=== PATIENT | male | born 1955 | race Two or more races ===

== ENCOUNTER 2019-06-22 05:46 | Day surgery (SDC) | payer MEDICARE ==
--- NOTE | 2019-06-20 10:53 | Pre-Procedure Note/Attestation ---
Pre-Procedure Note/Attestation Complete Prior to Procedure Planned Procedure: right Procedure Narrative: Cataract Extraction With IOL Implant Right Eye Indications for Procedure Pre-Operative Diagnosis: Nuclear sclerotic cataract right eye Attestation I attest that I discussed the nature of the procedure; its benefits; risks and complications; and alternatives (and the risks and benefits of such alternatives ), prior to the procedure, with the patient (or the patient's legal product representative). I attest that, if there was a reasonable possibility of needing a blood transfusion, the patient (or the patient's legal product representative) was given the [facility] standardized written summary, pursuant to the [place] Blood Safety Act ([place] Health and Safety Code # 1645, as amended). I attest that I re-evaluated the patient just prior to the surgery and that there has been no change in the patient's H&P, except as documented below: Elias Bailey MD June 20, 2019 10:53
--- NOTE | 2019-06-20 10:56 | Opthalmology H&P ---
Ophthalmology H&P H&P Chief Complaint: decreased vision in right eye HPI Vision Affects Ability to: read, manage personal affairs HPI Narrative Blurry vision Exam Visual Acuity: OD 20/50 OS 20/25 Tension: OD 14 OS 13 Eye Exam: normal OU: external exam, palpebral fissure-width, marginal reflex distance, levator function, corneas, anterior chambers, fundus exam; findings: lens - NS Cataracts OU Assessment/Plan Treatment Plan: cataract extraction w/ lens implant Goals of Treatment: improvement of vision, enhance quality of life Attestation Attestation The risks and benefits of the surgery as well as alternative procedures were explained to the patient in detail. Elias Bailey MD June 20, 2019 10:56
[2019-06-20 12:18] LABS: ANION GAP 10 mmol/L (5-15); BLOOD UREA NITROGEN 11 mg/dL (7-18); CALCIUM 8.6 MG/DL (8.5-10.1); CARBON DIOXIDE 27 MMOL/L (21-32); CHLORIDE 103 MMOL/L (98-107); POTASSIUM 4.3 MMOL/L (3.5-5.1); SODIUM 140 MMOL/L (136-145)
[2019-06-20 12:47] LABS: BASOPHILS % (AUTO) 1.7 % (0.0-2.0); EOSINOPHILS % (AUTO) 4.2 % (0.0-3.0); HEMATOCRIT 42.2 % (42.0-52.0); HEMOGLOBIN 15.4 G/DL (14.2-18.0); LYMPHOCYTES % (AUTO) 44.5 % (20.0-45.0); MEAN CORPUSCULAR VOLUME 89 FL (80-99); MONOCYTES % (AUTO) 6.7 % (1.0-10.0); NEUTROPHILS % (AUTO) 42.9 % (45.0-75.0); PLATELET COUNT 306 K/UL (150-450); RED BLOOD COUNT 4.75 M/UL (4.70-6.10); RED CELL DISTRIBUTION WIDTH 12.4 % (11.6-14.8); WHITE BLOOD COUNT 9.3 K/UL (4.8-10.8)
[2019-06-20 12:48] LABS: INR 0.9 (0.9-1.1)
--- NOTE | 2019-06-20 15:15 | Diagnostic Imaging Report ---
Indication: Cough Technique: 2 views of the chest Comparison: None Findings: Lungs and pleural spaces are clear. The heart size is normal. The bones are unremarkable. Impression: Negative
[~2019-06-22] VITALS: Ht 167.6 cm; Wt 69.9 kg
[2019-06-22] VITALS (9 sets, daily range): BP systolic 141–168; BP diastolic 79–96
[~2019-06-22 05:46] MED LIST: ASPIRIN81 MG ORAL; ATORVASTATIN CA20 MG ORAL; ENALAPRIL MALEAT5 MG ORAL; GLIPIZIDE10 MG PO; MELOXICAM7.5 MG PO; METFORMIN HCL500 M1 ORAL
[2019-06-22] MEDS: Tropicamide 1% Opth 15ml Soln RIGHT EYE SCH ×3 (06:29→06:57)
[2019-06-22] MEDS: Phenylephrine 10% Opth Soln 5ml RIGHT EYE SCH ×3 (06:30→06:57)
[2019-06-22] MEDS: Cyclopentolate 1% Opth Sol 2ml RIGHT EYE SCH ×3 (06:31→06:57)
[2019-06-22] MEDS ORDERED: Akten 3.5% 1ml Btl RIGHT EYE ONE (07:00)
[2019-06-22] MEDS ORDERED: Proparacaine 0.5% Opth Soln 15ml RIGHT EYE ONE (07:00)
[2019-06-22] MEDS ORDERED: Tetracaine 0.5% Opth 4ml Soln RIGHT EYE ONE (07:00)
[2019-06-22] MEDS ORDERED: LR 1000ml 1,000 ML IVLG SCH (07:02)
--- NOTE | 2019-06-22 07:02 | Anethesia Preoperative Eval ---
Anesthesia Pre-op PMH/ROS General Date of Evaluation: June 22, 2019 Anesthesiologist: Farhan ASA Score: ASA 2 Mallampati Score Class I : Soft palate, uvula, fauces, pillars visible Class II: Soft palate, uvula, fauces visible Class III: Soft palate, base of uvula visible Class IV: Only hard plate visible Mallampati Classification: Class II Surgeon: Lynn Diagnosis: Right cataract Surgical Procedure: Right cataract extraction with IOL Anesthesia History: none Family History: no anesthesia problems Allergies: Coded Allergies: No Known Allergies (Unverified , 06/20/19) Medications: see eMAR Patient NPO?: Yes NPO Date: June 22, 2019 NPO Time: 00:00 Past Medical History Cardiovascular: Reports: HTN; Denies: CAD, RI, valve dz, arrhythmia, other Pulmonary: Denies: asthma, COPD, ERIK, other Gastrointestinal/Genitourinary: Reports: other - BPH; Denies: GERD, CRI, ESRD Neurologic/Psychiatric: Denies: dementia, CVA, depression/anxiety, TIA, other Endocrine: Reports: DM; Denies: hypothyroidism, steroids, other HEENT: Reports: cataract (L), cataract (R); Denies: glaucoma, TOGIAK (L), TOGIAK (R), other Hematology/Immune: Denies: anemia, DVT, bleeding disorder, other Musculoskeletal/Integumentary: Denies: OA, RA, DJD, DDD, edema, other PSxH Narrative: Denies Anesthesia Pre-op Phys. Exam Physician Exam Last Vital Signs Date Time Temp Pulse Resp B/P (MAP) Pulse Ox O2 Delivery O2 Flow Rate FiO2 06/22/19 06:42 97.3 83 18 162/87 97 Room Air Constitutional: NAD Cardiovascular: RRR Respiratory: CTA Airway Exam Mallampati Score: Class II MO: full ROM: full Anesthesia Pre-op A/P Labs see chart Studies Pre-op Studies: EKG - sr Risk Assessment & Plan Assessment: ASA II Plan: MAC Status Change Before Surgery: No Pre-Antibiotics Drug: N/A Marisa Real MD June 22, 2019 07:02
[2019-06-22] MEDS ORDERED: BSS 500ml btl ONE (07:11)
[2019-06-22] MEDS ORDERED: BSS 15ml BTL ONE (07:11)
[2019-06-22] MEDS ORDERED: Sodium Hyaluronate 10 mg/ml 0.85ml ONE (07:12)
[2019-06-22] MEDS ORDERED: Midazolam 2mg/2ml Inj ONE (07:14)
[2019-06-22] MEDS ORDERED: fentaNYL 100 mcg/2 mL IV ONE (07:14)
[2019-06-22] MEDS ORDERED: Lidocaine 1% MPF 10mg/ml 5ml ONE (07:14)
[2019-06-22] MEDS ORDERED: DiphenhydrAMINE 50mg/ml Inj IVP PRN (07:15)
[2019-06-22] MEDS ORDERED: LORazepam Inj 2mg/ml 1ml IV PRN (07:15)
[2019-06-22] MEDS ORDERED: Povidone-Iodine 5% opth solution ONE (07:16)
[2019-06-22] MEDS ORDERED: NS Irrig 1000ml ONE (08:00)
[2019-06-22] MEDS ORDERED: Sterile Water Irrig 1000ml IRRIG ONE (08:00)
[2019-06-22] MEDS ORDERED: LR 1000ml ONE (08:00)
--- NOTE | 2019-06-22 08:35 | Immediate Post-Op Evaluation ---
Immediate Post-Op Evalulation Immediate Post-Op Evalulation Procedure: right cataract extraction with IOL Date of Evaluation: June 22, 2019 Time of Evaluation: 08:37 IV Fluids: 300 Blood Products: 0 Estimated Blood Loss: 0 Urinary Output: 0 Blood Pressure Systolic: 164 Blood Pressure Diastolic: 96 Pulse Rate: 87 Respiratory Rate: 16 O2 Sat by Pulse Oximetry: 97 Temperature (Fahrenheit): 97.4 Pain Score (1-10): 0 Nausea: No Vomiting: No Complications 0 Patient Status: awake, reacts, patent, none Hydration Status: adequate Drug: N/A Marisa Real MD June 22, 2019 08:35
--- NOTE | 2019-06-22 08:36 | 48 Hour Post Anesthesia Eval ---
Post Anesthesia Evaluation Procedure: right cataract extraction with IOL Date of Evaluation: June 22, 2019 Airway: patent Nausea: No Vomiting: No Pain Intensity: 0 Hydration Status: adequate Cardiopulmonary Status: at baseline Mental Status/LOC: patient returned to baseline Post-Anesthesia Complications: 0 Follow-up care needed: ready to discharge Marisa Real MD June 22, 2019 08:36
[2019-06-22] MEDS ORDERED: Ciprofloxacin Opth Soln 2.5ml RIGHT EYE ONE (10:45)
--- NOTE | 2019-06-22 13:29 | Brief Operative Note ---
Immediate Post Operative Note Operative Note Chief Complaint: Blurry vision Pre-op Diagnosis: Nuclear sclerotic cataract right eye Procedure: Cataract extraction with IOL implant right eye Post-op Diagnosis: Pseudo OD Findings: consistent w/pre-op dx studies Surgeon: Elias Bailey MD Anesthesiologist: Marisa Real MD Anesthesia: MAC Specimen: none Complications: none Condition: stable Fluids: LR Estimated Blood Loss: none Drains: none Implant(s) used?: Yes - IOL-OD Elias Bailey MD June 22, 2019 13:29
--- NOTE | 2019-06-22 13:32 | Operative Note - PDOC ---
Operative Note Operative Note Date of Operation/Procedure: June 22, 2019 Chief Complaint: Blurry vision Pre-op Diagnosis: Nuclear sclerotic cataract right eye Procedure: Cataract extraction with IOL implant right eye Post-op Diagnosis: Pseudo OD Operative Findings: consistent w/pre-op dx studies Surgeon: Elias Bailey MD Anesthesiologist: Marisa Real MD Anesthesia: MAC Specimen: none Complications: none Condition: stable Fluids: LR Estimated Blood Loss: none Drains: none Implant(s) used?: Yes - IOL-OD Indications for Procedure Nuclear sclerotic cataract right eye Description of Procedure This patient has been complaining visually significant cataract in the right eye with the best corrected visual acuity of 20/50 under moderate glare conditions worse. The patient complains of difficulties with glare in performing activities of daily living and wants to manage personal affairs with comfort and accuracy and see well enough to move with safety at home and outdoors. The risks, benefits and alternatives of the procedure were discussed with the patient in the office prior to scheduling surgery. All questions from the patient were answered after the surgical procedure was explained in detail. The risks of the procedure as explained to the patient include, but are not limited to, pain, infection, bleeding, loss of vision, retinal detachment, need for further surgery, loss of lens nucleus, double vision, etc. Alternative procedures were discussed which include, to do nothing or seek a second opinion. Informed consent for this procedure was obtained from the patient. The patient was referred to a primary care physician for a cardiopulmonary clearance prior to surgery, after proper evaluation was done patient was properly scheduled for outpatient surgery. The patient was brought to the operating room where the anesthesiologist established I.V. lines and cardiac monitoring leads. Mild intravenous sedation was administered. The patient was then prepared with a 5% solution of povidone -iodine to the conjunctival fornix and lashes, and a 5% solution of povidone- iodine to the lids and periorbital skin. The patient was then draped in the usual sterile fashion. A lid speculum was then placed in the operative eye. A keratome blade was then used to create a biplanar incision into the anterior chamber. Viscoelastics was then instilled into the anterior chamber. A capsulorrhexis was then fashioned with an utrata forceps. BSS and a cannula were then used to hydrodissect and hydro delineate the lens. Paracentesis incision was made at 3 o'clock with sharp blade. The phacoemulsification unit, after being properly adjusted and tested, was then used to emulsify the nucleus. Residual cortical material was aspirated with the irrigation and aspiration unit. Healon was then instilled into the anterior chamber. The corneal wound was then enlarged to the size of the optic with the ashley keratome blade. The intraocular lens was then inspected for right power and size and thought to be satisfactory. Then the lens was gently placed in the capsular bag. Positioning within the capsular bag was confirmed by direct visualization. Optic centration was accomplished with a Sinskey hook. Viscoelastics was removed from the anterior chamber using the irrigation and aspiration unit. The corneal wound was then tested for leaks and none were found. The lid speculum were then removed. Sponge and needle counts were correct. An eye patch and shield were placed over the operative eye. The patient was taken to the recovery room in stable condition. There were no complications. The patient tolerated the procedure well. The patient was then transferred to the ambulatory surgery unit in stable and satisfactory condition , was given detailed written instructions and asked to follow up in the office the next day. Elias Bailey MD June 22, 2019 13:32
--- NOTE | 2019-06-22 17:29 | Pre-op HX & Phy Repo 2 SIG ---
DATE OF ADMISSION: 06/22/2019 PRESURGICAL INTERNAL MEDICINE HISTORY AND PHYSICAL DATE OF EVALUATION: 06/20/2019 REASON FOR EVALUATION: I was asked by Dr. Elias Bailey to see this 64-year-old male who is going for elective surgery on the right eye cataract on June 22, 2019. The patient was evaluated at outpatient [facility] and result of evaluation. The patient is alert, well-developed, well-nourished male in his 60s, no acute distress. PAST MEDICAL HISTORY: Remarkable for type 2 diabetes, hypertension, shoulder osteoarthritis, and hyperlipidemia. Denies history of chest pain, palpitation, or heart attack. No history of stroke or seizures. Denies history of GI problem. No hepatitis or gastritis. Denies history of renal failure or prostate problem. No history of anemia. PAST SURGICAL HISTORY: None. FAMILY HISTORY: Parents , cause unknown. ALLERGIES: To seasonal pollen. PRESENT MEDICATIONS: Include enalapril 10 mg, glipizide 5 mg twice a day, metformin 1000 mg twice a day, atorvastatin, baby aspirin 81 mg daily, meloxicam 15 mg daily. HABITS: Stopped smoking 25 years ago after 25 years of smoke for approximately a pack a day. Denies alcohol or street drug use. PHYSICAL EXAMINATION: GENERAL: Alert, well-developed, well-nourished male in his 60s, no acute distress. VITAL SIGNS: Blood pressure 155/89, temperature 97.4, heart rate is 83, O2 saturation 97% on room air. SKIN: Clear, warm, dry. No rashes. LYMPHATICS: Lymph nodes not enlarged. HEENT: Head, normocephalic, atraumatic. Ears clear, no discharge. Nose clear, no discharge. Eyes, full description per Dr. Elias Bailey. Mouth clear and moist, no dentures. NECK: Supple. No jugular venous distention. Carotids artery +2. Trachea midline. CHEST: No deformity or asymmetry. LUNGS: Clear to auscultation and percussion. No rales or rhonchi. HEART: Heart sounds distant. No murmur. No S3 or S4. No ectopy. ABDOMEN: Soft, benign. Liver and spleen not enlarged. EXTREMITIES: No peripheral edema or varicose vein. No muscle atrophy. No calf tenderness. GENITOURINARY TRACT: Denies dysuria but has urgency. No CVA tenderness. NERVOUS SYSTEM: No tremor. No nystagmus. LABORATORY AND DIAGNOSTIC DATA: EKG, normal sinus rhythm 82 per minute, normal ECG. Fasting blood sugar 249, postprandial . The patient to be NPO prior to surgery. IMPRESSION: 1. Nuclear sclerotic cataract, right eye. 2. Hypertension, controlled. 3. Type 2 diabetes mellitus. Recheck fasting blood sugar prior to surgery. 4. Osteoarthritis, shoulder. 5. Benign prostatic hypertrophy with urgency. PLAN: Cataract extraction, right eye, with intraocular lens implant per Dr. Elias Bailey. CONCLUSION: The patient is a 64-year-old male with a history of hypertension and type 2 diabetes. The patient is on proper medication. The patient to be NPO after midnight June 22, 2019. The patient's condition optimized for surgery. Thank you very much Dr. Bailey for privilege to participate in presurgical care of this interesting patient. Margret Queen M.D. DR: Ted JOB#: [id number] CC:
== END 2019-06-22 10:00 | disposition home or self-care (01) ==
LOC: SUR 05:46
DX: H25.11 Age-related nuclear cataract, right eye (principal); E11.9 Type 2 diabetes mellitus without complications; I10 Essential (primary) hypertension; E78.5 Hyperlipidemia, unspecified; M19.019 Primary osteoarthritis, unspecified shoulder; Z79.2 Long term (current) use of antibiotics; Z79.899 Other long term (current) drug therapy; Z79.84 Long term (current) use of oral hypoglycemic drugs; Z87.891 Personal history of nicotine dependence; N40.1 Benign prostatic hyperplasia with lower urinary tract symptoms; R35.0 Frequency of micturition
CPT/HCPCS: 36415; 71046; 80048; 85025; 85610; 85730; 94003; 94150; J2250